=== PATIENT | female | born 2005 ===

== ENCOUNTER 2024-07-03 20:14 | Emergency (ER) | payer BC, OTHER | END 2024-07-03 21:20 | disposition home or self-care (01) | LOC: FB.ED 20:14 | DX: S93.602A Unspecified sprain of left foot, initial encounter (principal); Z79.899 Other long term (current) drug therapy; Z88.1 Allergy status to other antibiotic agents; Z88.8 Allergy status to other drugs, medicaments and biological substances; W18.39XA Other fall on same level, initial encounter; Y93.67 Activity, basketball | CPT/HCPCS: 73630-LT; 99283 ==